=== PATIENT | male | born 1945 | race Caucasian/White ===

== ENCOUNTER 2020-11-28 05:39 | Inpatient (IN) ==
--- NOTE | 2020-11-25 14:17 | Anesthesiology Consultation ---
Date of Service November 25, 2020 Assessment & Plan (1) Encounter for pre-operative examination: - COVID screening: Per assessment on 11/25: Travel screen negative, no known COVID-19 positive contacts or current COVID-19 related symptoms. Patient had [place] 08/[place]/20 ([place]) > symptoms at time of fatigue, cough, n/v > resolved. Patient had Shantelle vaccine 10/17/20. Surgeon arranging preop COVID testing. Awaiting results. - Check BSG AM DOS Chart Review Chart Review: Acceptable Risk for Surgery and Patient NOT seen in Pre Admission Testing History Surgery Operation Date: 11/28/20 07:30 Proposed Procedures p Robotic Laparoscopic Assisted Partial Nephrectomy - Niko Flanagan, Height/Weight Height: 5 ft 7 in Weight: 86.183 kg Allergies Allergy/AdvReac Type Severity Reaction Status Date / Time No Known Allergies Allergy Unverified 11/25/20 13:17 Medications Home Medications Medication Instructions Recorded Confirmed Last Taken atorvastatin 40 mg PO HS 08/29/20 11/25/20 Unknown irbesartan 300 mg PO QAM 08/29/20 11/25/20 Unknown metformin 500 mg PO QAM 08/29/20 11/25/20 Unknown trazodone 50 mg PO HS 08/29/20 11/25/20 Unknown cholecalciferol (vitamin D3) 50 mcg PO BID 11/25/20 11/25/20 Unknown [Vitamin D3] ibuprofen-diphenhydramine cit 1 cap PO HS PRN 11/25/20 11/25/20 Unknown [Advil PM] melatonin 10 mg PO HS 11/25/20 11/25/20 Unknown multivitamin 1 tab PO QAM 11/25/20 11/25/20 Unknown Past Medical History Medical History Chronic back pain DM type 2 (diabetes mellitus, type 2) NIDDM History of COVID-19 Dx [place]/30/20 ([place]) > symptoms at time of fatigue, cough, n/v > resolved History of kidney stones HLD (hyperlipidemia) HTN (hypertension) Renal mass, right Past Family History Family History Mother Hypertension Other No family history of adverse response to anesthesia Past Surgical History Surgical History History of colonoscopy History of tooth extraction Social History Smoking Status: Never smoker Do You Dip or Chew Tobacco: No Hx Alcohol Use: No Hx Substance Use: No substance use type: does not use Lab Results Anesthesia Preop Results Results Anesthesia Widget: WBC 4.90 K/uL (4.8-10.8) 11/15/20 Hgb 13.1 g/dL (14.0-18.0) L 11/15/20 Hct 40.1 % (42-52) L 11/15/20 Plt 209 K/uL (130-400) 11/15/20 Na 142 mmol/L (136-145) 11/15/20 K 3.9 mmol/L (3.5-5.1) 11/15/20 Cl 109 mmol/L (98-107) H 11/15/20 CO2 28 mmol/L (21-32) 11/15/20 BUN 21 mg/dl (7-18) H 11/15/20 Creat 0.99 mg/dl (0.6-1.4) 11/15/20 Glucose Level 99 mg/dl (70-99) 11/15/20 Urine Color Yellow 11/15/20 Urine Appearance Clear 11/20/20 Urine pH 6.0 (4.5-7.5) 11/15/20 Urine Specific [place] 1.013 (1.000-1.030) 11/15/20 Urine Protein Negative (Negative) 11/15/20 Urine Glucose (UA) Negative (Negative) 11/15/20 Urine Ketones Negative (Negative) 11/15/20 Urine Blood Negative (Negative) 11/15/20 Urine Nitrite Negative (Negative) 11/15/20 Urine Bilirubin Negative (Negative) 11/15/20 Urine Urobilinogen Negative (Negative) 11/15/20 Urine Leukocyte Esterase Negative (Negative) 11/15/20 Testing Electrocardiogram Date: 08/30/20 SR with first degree AVB at 71bpm. Otherwise normal ECG. Chest X-Ray Date: 10/25/20 Interstitial thickening and a few bilateral airspace opacities, improved since exam of August 29, 2020. The findings favor a resolving infectious process. Follow-up chest radiographs in 3 months to ensure complete resolution is recommended. Cardiomegaly without evidence for pulmonary edema.
[2020-11-28] MEDS ORDERED: LR 15ML/HR IV SCH (06:00)
[2020-11-28] MEDS ORDERED: ceFAZolin 2000MG 2,000 MG/15 ML SYR IV SCH (06:00)
[2020-11-28] MEDS ORDERED: ALBUMIN HUMAN 5% 12.5 GM/250 ML VIAL IV ONE (06:32)
[2020-11-28] MEDS ORDERED: SUGAMMADEX SODIUM 200 MG/2 ML VIAL IV ONE (06:32)
[2020-11-28] MEDS ORDERED: ACETAMINOPHEN 1000 MG/100 ML IV IV ONE (06:32)
[2020-11-28] MEDS ORDERED: fentaNYL citrate 100 MCG/2 ML VIAL ONE (06:44)
[2020-11-28] MEDS ORDERED: MIDAZOLAM HCL 1 MG/ML 2ML VIAL ONE (06:44)
--- NOTE | 2020-11-28 07:06 | History & Physical Bridge Note ---
Date of Service November 28, 2020 History & Physical Bridge Note I have examined the patient, reviewed the History & Physical and in the interval since the performance of the History & Physical I have noted the following changes of clinical significance: no changes noted
[2020-11-28] MEDS ORDERED: BUPIVACAINE 0.5 % 5 MG/1 ML MPF 30ML VIAL ONE (07:24)
[2020-11-28] MEDS ORDERED: ATROPINE SULFATE 0.1 MG/ML 10ML SYR IV PRN (08:03)
[2020-11-28] MEDS ORDERED: ePHEDrine sulfate 50 MG/ML AMP IV PRN (08:03)
[2020-11-28] MEDS ORDERED: HYDROmorphone INJ 1 MG/ML SYRINGE IV PRN (08:03)
[2020-11-28] MEDS ORDERED: ONDANSETRON INJ 2 MG/ML 2 ML VIAL IV PRN (08:03)
[2020-11-28] MEDS ORDERED: ROCURONIUM BROMIDE 10 MG/ML 5 ML VIAL IV ONE (08:47)
[2020-11-28] MEDS ORDERED: DEXAMETHASONE SOD INJ 4 MG/ML VIAL ONE (08:47)
[2020-11-28] MEDS ORDERED: LIDOCAINE 2% 2 ML VIAL/AMP(20MG/ML) INFIL ONE (08:47)
[2020-11-28] MEDS ORDERED: ePHEDrine sulfate 50 MG/ML SYR ONE (08:47)
[2020-11-28] MEDS ORDERED: ONDANSETRON INJ 2 MG/ML 2 ML VIAL ONE (08:47)
[2020-11-28] MEDS ORDERED: PROPOFOL IV EMULSION 10 MG/ML 20 ML VIAL IV ONE (08:47)
[2020-11-28] MEDS ORDERED: TISSEEL FIBRIN SEALANT 10ML TOP ONE (09:07)
[2020-11-28] MEDS ORDERED: SURGICEL ABSORB HEMOSTAT 2IN X 14IN TOP ONE (09:07)
[2020-11-28] MEDS ORDERED: FLOSEAL HEMOSTATIC MATRIX 10ML TOP ONE (09:07)
[2020-11-28] MEDS ORDERED: HYDROmorphone INJ 2 MG/ML SYR/VIAL ONE (09:48)
[2020-11-28] MEDS ORDERED: SODIUM CHLORIDE 0.9% INJ 10 ML VIAL ONE (09:49)
--- NOTE | 2020-11-28 10:45 | Operative Report ---
PG Post Operative Report Pre & Post Diagnosis Operation Date: 11/28/20 07:30 Pre-Op Diagnosis: Right Renal Mass Post-Op Diagnosis: Right Renal Mass I identified the patient and participated in the time-out.: Yes Procedure Operation Date: 11/28/20 07:30 Actual Procedures p Robotic Laparoscopic Assisted Right Partial Nephrectomy(Right) - Niko Flanagan DO Surgeon Niko Flanagan, II, DO Ssis Developer Liu and Jessica Estimated Blood Loss 20 Findings Consistent with Post-Op Diagnosis Anterior Upper pole renal mass. Arterial and Venous branches of renal vessels around the mass. Specimens Right renal mass Drains 18 Fr Rao Anesthesia Type General Complications none Disposition Disposition: Recovery Room Indications Patient with right renal mass suspicious for malignancy. Risks and benefits discussed at length. Description of Procedure The patient was brought to the operative suite and placed under general endotracheal intubation anesthesia in the supine position. The patient was transferred to lateral position with the right flank exposed. The patient was placed into a flex'ed position and then placed into mild reverse Trendelenberg. At this point, the patient prepped and draped in the usual sterile fashion and a timeout was completed. Preoperative weight based antibiotics had been given. DIANA's and SCD's were placed on the patient's lower extremities. A catheter was placed by nursing using sterile technique. With the time out completed the patient was flexed and the skin was marked. The midclavicular line site was anesthetized. A small incision was made into the skin and subcutaneous tissues. A Varess needle was selected and placed. The needle was easily moved and it was irrigated and aspirated without any issues or concerns for placement. Insufflation commenced. The Robotic port was then marked along the lateral edge of the rectus sheath. Local was injected. An incision was made. The 8 mm camera port was placed. The abdominal cavity was further insufflated. The laparoscopic camera was placed and the abdominal cavity inspected. No concerning features were noted. At this point, the skin was marked for remaining robot port placement and 3 x 8mm working ports were placed. The skin was anesthetized down to fascia and an approx 1cm incision was made to place the 3 x 8mm ports. A 12 mm assistant technician ports was also placed in similar fashion under direct visualization superior to the umbilicus. The robot was positioned and docked. The camera was placed and all trocars were positioned under direct visualization. Rosa Hatfield was integral in port placement, camera utilization, and docking procedure. She also assisted during the extensive lysis of adhesions. She remained in sterile attire and then proceeded to assist the remainder of the case. The colon was mobilized medially to expose the retroperitoneum and the area assessed. Adhesions were freed to allow mobilization. A small amount of further adhesions were noted from the colon and were freed. These were dissected with blunt technique. Cautery was used to assist dissection and control bleeding. The retroperitoneal fat was assessed. Starting distally the retroperitoneum was dissected and care was taken to dissect down near the IVC. The gonadal vein and ureter were identified. This was then followed superiorly. Dissection stayed toward the midline along the IVC and the ureter and gonadal vein were followed up towards the renal hilum. The dissection was followed to the renal pelvis. The Renal Vein was identified and exposed. Dissection was taken further superior. The Renal Artery and Vein were then cleaned and exposed. Clamp placement was assessed and good access was achieved. The perirenal fat anterior to the kidney was then dissected. The mass and surrounding tissues were exposed. The kidney was then further mobilized. The ultrasound probe was placed and the mass further examined. The edges were marked. Branches of the renal vein and artery wrapped around the medial edge of the mass. These were carefully dissected free and were able to be spared from dissection or ligation. The Vessels were assessed a final time. A bulldog clamp was placed on the artery and then on the vein. The kidney appropriately blanched. The previously marked margins were used to start the incision into the kidney. The mass was completely excised without evidence of penetrating into the capsule of the mass. The mass was quite deep and dissection was taken down towards the collecting system. The base of resection bed was assessed and small vessels were cauterized. The collecting system did appear to be opened in a small area. A 3-0 barbed suture was selected and the nephrotomy closed. Care was taken to close the collecting system opening. 3-0 Vicryl sutures were then used to close the edges of the elliptical opening. Two Vicryl sutures were used to close and bolster the edges. At this point, the bulldog clamps were removed. Warm ischemia time, in total, was 11 minutes and 55 Seconds. The kidney was full assessed after removal of clamps. No bleeding or other major areas of concern. Weck and Hemolock clips were used to bolster and tightened to approximate the edges. Surgicel hemostatic agent sheets were placed over the vessels and on the incised edge. Hemostatic agents Tisseel and Floseal were also placed. Hemostatic agent was also placed on the vessels. No major bleeding or other issues. Gerota's tissues were replaced utilizing clips to cover the area. The excised mass was placed in an endocatch bag for removal. The entire dissection space was inspected one final time. No bleeding or injuries or areas of concern were noted. No tumor or other concerning features were noted. At this point, the robot was undocked and moved away from the patient. The port sites were all assessed laparoscopically. The endoscopic bag was moved into the umbilical port. The assistant technician port was opened further exposing fascia which was then opened in order to removed the mass within the bag. A PDS suture was used to close fascia. The skin at each site was closed with a running monocryl suture. The area was cleaned and bandages placed on each incision. The patient was cleaned and bandaged. The patient was moved back into the supine position The patient was cleaned, aroused from anesthesia, and transferred to the pacu in stable condition having tolerated the procedure well with no complications. I was present and participated in all aspects of the procedure. ENRIQUE Torres was critical in the portions as mentioned above. Plan to observe overnight with plans for pathology review in 2-3 weeks. I attest to the content of the Intraoperative Record and any orders documented therein. Any exceptions are noted below.
[2020-11-28] MEDS: fentaNYL citrate 100 MCG/2 ML VIAL IV PRN ×4 (11:07→11:22)
--- NOTE | 2020-11-28 11:32 | Anesthesiology Progress Note ---
Date of Service November 28, 2020 Anesthesia Post Procedure Vital Signs Vital Signs: Temp Pulse Pulse Resp BP BP Pulse Ox 11/28/20 11:30 74 16 134/75 95 11/28/20 11:20 78 16 138/76 94 11/28/20 11:10 74 16 123/70 98 11/28/20 11:00 71 16 132/73 100 11/28/20 10:53 36.2 C L 73 16 140/72 98 11/28/20 06:19 37.2 C 61 20 166/87 H 97 Transfer of Care Handoff Completed per policy Notes Mental Status: alert / awake / arousable and participated in evaluation Patient Amnestic to Procedure: Yes Nausea / Vomiting: adequately controlled Pain: adequately controlled Airway Patency, RR, SpO2: stable & adequate BP & HR: stable & adequate Hydration State: stable & adequate Anesthetic Complications: no major complications apparent and Pt Satisfied with anesthetic care
[2020-11-28 11:38] LABS: Basophils # (auto) 0.01 K/uL (0-0.2); Basophils % (auto) 0.1 %; Eosinophils # (auto) 0.03 K/uL (0-0.5); Eosinophils % (auto) 0.4 %; Hematocrit (blood only) 39.5 % (42-52); Immature Granulocytes # (auto) 0.01 K/uL (0.00-0.02); Immature Granulocytes % (auto) 0.1 %; Lymphocytes # (auto) 0.65 K/uL (1.2-3.4); Lymphocytes % (auto) 8.5 %; Mean Corpuscular Hemoglobin 31.6 pg (25-34); Mean Corpuscular Volume 96.1 fL (80-100); Mean Platelet Volume 9.6 fL (7.4-10.4); Monocytes # (auto) 0.15 K/uL (0.11-0.59); Neutrophils # (auto) 6.84 K/uL (1.4-6.5); Neutrophils % (auto) 88.9 %; Platelet Count 186 K/uL (130-400); RDW Coefficient of Variation 13.7 % (11.5-14.5); RDW Standard Deviation 48.5 fL (36.4-46.3); Red Blood Count 4.11 M/uL (4.7-6.1); White Blood Count 7.69 K/uL (4.8-10.8)
[2020-11-28 11:45] LABS: Mean Corpuscular Hgb Conc 32.9 g/dL (32-36)
[2020-11-28 12:15] LABS: BUN Creatinine Ratio 25.6 (10-20); Calcium 5.5 mg/dl (8.5-10.1); Creatinine Clr Calc Pharmacy 126.8 ml/min; Est GFR (African American) 118.3 ml/min; Est GFR (Non-African American) 102.1 ml/min; Potassium 2.2 mmol/L (3.5-5.1)
[2020-11-28] MEDS ORDERED: MoRPHine SULFATE 4 MG/ML 1 ML CARP\\VIAL IV PRN (12:18)
[2020-11-28] MEDS ORDERED: MoRPHine SULFATE 2 MG/ML CARP IV PRN (12:18)
[2020-11-28] MEDS ORDERED: oxyCODONE HCL IR 5 MG TAB (IMMEDIATE RELEASE) PO PRN (12:18)
[2020-11-28] MEDS ORDERED: LACTATED RINGER'S 1,000 ML IV SCH ×2 (12:18→16:00)
[2020-11-28] MEDS ORDERED: ACETAMINOPHEN 325 MG TAB PO PRN (12:18)
[2020-11-28] MEDS ORDERED: PHARMACY GLYCEMIC MGMT CONSULT PRN (12:24)
[2020-11-28] MEDS ORDERED: GLUCOSE 10 TABS/TUBE PO PRN (13:00)
[2020-11-28] MEDS ORDERED: CARBOHYDRATES FOR HYPOGLYCEMIA PO PRN (13:00)
[2020-11-28] MEDS ORDERED: DEXTROSE 50% 50 ML SYRINGE IV PRN (13:00)
[2020-11-28] MEDS ORDERED: GLUCAGON FOR INJ 1 MG VIAL IM PRN (13:00)
[2020-11-28] MEDS ORDERED: GLUCOSE 40% GEL 15 GM TUBE PO PRN (13:00)
[2020-11-28] MEDS ORDERED: D5W AND 1/2NSS + 20MEQ KCL 20 MEQ/1,000 ML BAG IV SCH (13:15)
--- NOTE | 2020-11-28 13:29 | Pharmacy Report ---
Pharmacy Glycemic Short Note 2 - Date of Service November 28, 2020 - Glycemic Short BSG Results (Last 24 hours): 11/28/20 11/28/20 11/28/20 06:08 10:56 11:19 Glucose 125 H POC Glucose 105 H 179 H 11/28/20 12:10 Glucose POC Glucose 173 H OUTPATIENT ANTIDIABETIC REGIMEN: * Metformin 500mg PO QAM * A1c = ? (ordered for 11/29/20) ASSESSMENT: * 75yo T2DM male with unknown degree of outpatient control. No A1c in records. Ordered per protocol for 11/29 AM but will interpret cautiously as patient has renal mass s/p right partial nephrectomy which could have altered RBC turnover rate * Pt is maintained on oral antidiabetic agents as an outpatient * Oral agents are not recommended for inpatient use d/t drug interactions, changing PO intake, and difficulty titrating for acute hyper/hypoglycemia. ADA recommends re-initiating outpatient oral agents 1-2 days prior to discharge if/when appropriate if they were held on admission. * Will hold oral agent for admission and utilize SQ basal bolus insulin regimen which is the recommended regimen for inpatient glycemic control. * Will initiate weight based insulin dosing for insulin alanna patient and titrate based on BSG trends. * Pt did receive IV dexamethasone 4mg intraoperatively which will cause hyperglycemia. Usually NPH is given to cover this hyperglycemia but will hold off since LOW K+ and only ordered a clear liquid diet PLAN FOR INPATIENT GLYCEMIC CONTROL: * Hold outpatient oral diabetes medications * Basal insulin * HOLD for now- will initiate if BSG >180 once K+ > 3.3 * Bolus insulin * NovoLog per scale ACHS or Q6hrs while NPO. Additional Q4hr overnight checks since no basal ordered * Goal Range: Low 110 mg/dL - High 140 mg/dL * Correction Factor: 25 mg/dL/unit * Nutritional / Prandial insulin per carb ratio of 1 unit per 9 grams CHO consumed PLAN FOR DISCHARGE: * TBD
[2020-11-28] MEDS: INSULIN ASPART 100 UNITS/ML 3 ML PEN SC SCH ×3 (14:04→21:58)
[2020-11-28] MEDS ORDERED: CALCIUM GLUCONATE 10% 1,000 MG in SODIUM CHLORIDE 0.9% 50 ML IV ONE (14:30)
--- NOTE | 2020-11-28 14:57 | Hospitalist Consultation ---
Date of Consultation November 28, 2020 Assessment & Plan (1) Renal mass: s/p Robotic Laparoscopic Assisted Right Partial Nephrectomy POD #0 Pain and VTE management per primary urology team (2) Electrolyte abnormality: Suspect erroneous draw. Repeat CMP with uric acid, Mg and PO. Calcium gluconate 1g IV now. EKG with prolonged GA but similar to pre-op, otherwise unremarkable. (3) HLD (hyperlipidemia): Continue atorvastatin 40mg PO HS (4) HTN (hypertension): Continue irbesartan 300mg PO QAM (5) DM type 2 (diabetes mellitus, type 2): Pharmacy consulted for glycemic control History of Present Illness Reason for Consultation: Abnormal electrolytes Attending Physician: Niko Flanagan, II, DO History of Present Illness Franki Padilla is a 75 year old male who presents for elective Robotic Laparoscopic Assisted Right Partial Nephrectomy performed by Dr Flanagan earlier today for a renal cell mass. He reports doing well post operatively with only a mild pain across his upper abdomen around the site of his surgical incisions. He had routine post operative labs which were concerning for multiple electrolyte abnormalities including hypernatremia, hypokalemia, hyperchloremia and hypocalcemia. He denies any chest pain, palpitations. No history of abnormal electrolytes. Allergies Allergy/AdvReac Type Severity Reaction Status Date / Time No Known Allergies Allergy Unverified 11/28/20 06:15 Home Medications Medication Instructions Recorded Confirmed Type atorvastatin 40 mg PO HS 08/29/20 11/28/20 History irbesartan [Avapro] 300 mg PO QAM 08/29/20 11/28/20 History metformin 500 mg PO QAM 08/29/20 11/28/20 History trazodone 50 mg PO HS 08/29/20 11/28/20 History cholecalciferol (vitamin D3) 50 mcg PO BID 11/25/20 11/28/20 History [Vitamin D3] ibuprofen-diphenhydramine cit 1 cap PO HS PRN 11/25/20 11/28/20 History [Advil PM] melatonin 10 mg PO HS 11/25/20 11/28/20 History multivitamin 1 tab PO QAM 11/25/20 11/28/20 History Patient History Medical History Chronic back pain DM type 2 (diabetes mellitus, type 2) NIDDM History of COVID-19 Dx 3/26/21 ([place]) > symptoms at time of fatigue, cough, n/v > resolved History of kidney stones HLD (hyperlipidemia) HTN (hypertension) Renal mass, right Surgical History History of colonoscopy History of tooth extraction Family History Mother Hypertension Other No family history of adverse response to anesthesia Social History Smoking Status: Never smoker Second Hand Exposure: No; Do You Dip or Chew Tobacco: No; Hx Alcohol Use: No Hx Substance Use: No Preferred Language: French Front Desk Officer Required: No Beliefs That Will Affect Care: None Current Living Situation: Spouse Feels Safe at Home: Yes Safety Concerns: Feels Safe At This Time Assistive Devices: Denture - Upper Review of Systems Review of Systems: All systems reviewed & are unremarkable except as noted in HPI & below Physical Exam Constitutional: WD/WN, vitals as above Eyes: + anicteric sclerae; normal pupil size ENMT: external ear and nose normal, oropharynx normal Respiratory: normal respiratory effort, lungs clear to auscultation Cardiovascular: RRR, no murmur, no edema Gastrointestinal (Abdomen): Inspection/Auscultation: abdomen normal to inspection (surical incision scars present, C/D/I) and + hypoactive bowel sounds Percussion/Palpation: + abdomen tender (mild over upper abdomen) and abdomen soft; no guarding and abdomen not rigid Musculoskeletal: no cyanosis or clubbing, extremities motor strength 5/5 Skin: no rashes, warm and dry Neurologic: moves all extremities and awake; no focal motor deficits (no lateralizing deficit) and not confused Psychiatric: A+Ox3, euthymic affect Results & Data Results & Data ([facility]) Vital Signs (Past 12 Hours) Vital Signs Temp Pulse Pulse Resp BP BP Pulse Ox 11/28/20 13:08 36.2 C L 77 16 144/75 H 97 11/28/20 12:37 36.6 C 75 16 139/64 98 11/28/20 12:30 36.8 C 78 20 139/68 98 11/28/20 12:00 36.7 C 72 20 142/74 H 98 11/28/20 11:45 36.6 C 81 18 134/68 98 11/28/20 11:40 36.4 C L 75 16 144/77 H 98 11/28/20 11:30 74 16 134/75 95 11/28/20 11:20 78 16 138/76 94 11/28/20 11:10 74 16 123/70 98 11/28/20 11:00 71 16 132/73 100 11/28/20 10:53 36.2 C L 73 16 140/72 98 11/28/20 06:19 37.2 C 61 20 166/87 H 97 ECG Indication: other (electrolyte abnormalities) Rate (beats per minute): 78 Rhythm: normal sinus Findings: + 1st degree AV block (260ms); no acute ischemic change Comparison ECG Date: from (August 30, 2020) Change: no significant change PG Care Time/CCT Total # of Minutes Spent Total Time Spent with Patient: Total time spent is greater than 50% in coordination of care (as documented) at patient's floor/unit and/or counseling patient: Coding Level of Care Code 50844 Inpt Consult Level 4 Diagnoses Renal mass N28.89 Electrolyte abnormality E87.8 HLD (hyperlipidemia) E78.5 HTN (hypertension) I10 DM type 2 (diabetes mellitus, type 2) E11.9
[2020-11-28 15:40] LABS: Albumin Level 3.8 gm/dl (3.4-5.0); BUN Creatinine Ratio 18.4 (10-20); Calcium 8.6 mg/dl (8.5-10.1); Creatinine Clr Calc Pharmacy 62.2 ml/min; Est GFR (African American) 76.3 ml/min; Est GFR (Non-African American) 65.9 ml/min; Magnesium 2.2 mg/dl (1.8-2.4); Potassium 3.8 mmol/L (3.5-5.1)
[2020-11-28] MEDS: POTASSIUM CHLORIDE / WTR 10 MEQ/100 ML PLCT IV SCH ×2 (15:47→23:10)
[2020-11-28 15:50] LABS: Bilirubin Direct 0.3 mg/dl (0-0.2); Bilirubin,Total 0.8 mg/dl (0.2-1); Phosphorus 3.8 mg/dl (2.5-4.9); Total Protein 7.2 gm/dl (6.4-8.2)
[2020-11-28] MEDS: ceFAZolin 2000MG 2,000 MG/15 ML SYR IV SCH (16:53)
[2020-11-28] MEDS ORDERED: ATORVASTATIN 40 MG TAB PO SCH (21:00)
[2020-11-28] MEDS ORDERED: MELATONIN 3 MG TAB PO SCH (21:00)
[2020-11-28] MEDS ORDERED: traZODone HCL 50 MG TAB PO SCH (21:00)
[2020-11-28] MEDS: CHOLECALCIFEROL 1,000 UNITS 25 MCG TAB PO SCH (21:51)
[2020-11-28] MEDS: HEPARIN SOD 5,000 UNIT/0.5 ML VIAL SQ SCH (21:51)
[2020-11-29] MEDS: ceFAZolin 2000MG 2,000 MG/15 ML SYR IV SCH (00:01)
[2020-11-29] MEDS: INSULIN ASPART 100 UNITS/ML 3 ML PEN SC SCH ×4 (00:30→12:38)
[2020-11-29] MEDS: oxyCODONE HCL IR 5 MG TAB (IMMEDIATE RELEASE) PO PRN ×2 (04:10→13:14)
--- NOTE | 2020-11-29 06:23 | Electrocardiogram Report ---
Test Reason : Blood Pressure : / mmHG Vent. Rate : 078 BPM Atrial Rate : 078 BPM P-R Int : 260 ms QRS Dur : 096 ms QT Int : 434 ms P-R-T Axes : 037 -02 012 degrees QTc Int : 494 ms Sinus rhythm with 1st degree A-V block Possible Left atrial enlargement Prolonged QT Abnormal ECG When compared with ECG of 30-AUG-2020 18:38, No significant change was found Confirmed by Alvarez Mcleod ([id number]) on 11/29/2020 6:22:43 AM Referred By: Niko Flanagan Confirmed By:Alvarez Mcleod
[2020-11-29 07:30] LABS: Hematocrit (blood only) 38.8 % (42-52); Hemoglobin 12.8 g/dL (14.0-18.0); Immature Granulocytes # (auto) 0.01 K/uL (0.00-0.02); Immature Granulocytes % (auto) 0.1 %; Lymphocytes # (auto) 1.03 K/uL (1.2-3.4); Lymphocytes % (auto) 8.8 %; Mean Corpuscular Hemoglobin 31.7 pg (25-34); Mean Platelet Volume 9.9 fL (7.4-10.4); Monocytes # (auto) 1.17 K/uL (0.11-0.59); Neutrophils # (auto) 9.48 K/uL (1.4-6.5); Neutrophils % (auto) 81.1 %; Platelet Count 198 K/uL (130-400); RDW Coefficient of Variation 13.7 % (11.5-14.5); RDW Standard Deviation 48.4 fL (36.4-46.3); Red Blood Count 4.04 M/uL (4.7-6.1); White Blood Count 11.69 K/uL (4.8-10.8)
[2020-11-29 07:58] LABS: BUN Creatinine Ratio 20.9 (10-20); Calcium 8.9 mg/dl (8.5-10.1); Creatinine Clr Calc Pharmacy 65.2 ml/min; Est GFR (African American) 80.8 ml/min; Est GFR (Non-African American) 69.7 ml/min; Potassium 3.9 mmol/L (3.5-5.1)
--- NOTE | 2020-11-29 08:17 | Urology Progress Note ---
Date of Service November 29, 2020 Assessment & Plan (1) Renal mass: 75 year old male POD#1 s/p right partial nephrectomy with Dr. Flanagan. - Doing well, progressing as expected - Afebrile, lab work reviewed - as expected post-op - K and Ca within normal limits upon repeat yesterday and today - Tolerating clear liquid diet, advance to full liquids for lunch - Ambulating without difficulty - Surgical incisions appropriate - Rao out this AM, monitor for void - Anticipate home later today if he continues to progress as expected - Expected clinical course reviewed, all questions answered - Will arrange appropriate post-op appointment with our service Admission and Anticipated Discharge Date Admission Date: November 28, 2020 Subjective 75 year old male POD#1 s/p robotic right partial nephrectomy with Dr. Flanagan. Pt seen and examined at bedside in AM No acute issues overnight Notes some upper abdominal/incisional discomfort, right side Tolerating diet, no nausea or vomiting. +Flatus Rao intact, patent and draining clear yellow urine No fever or chills He ambulated hallway without difficulty He feels ready to go home today Labs directly after surgery showed some electrolyte abnormalities - K 2.2, Ca 5.5. Hospital medicine was consulted for electrolyte abnormalities. EKG was stable from preop. Labs were repeated and were within normal limits, post op labs suspected to be erroneous. Patient did not require repletion. Chart review: Afebrile, creatinine 1.03, WBC 11.69, Hgb 12.8, K 3.8, Ca 8.6 No additional concerns today. Review of Systems Constitutional: as per Subjective / HPI Gastrointestinal: as per Subjective / HPI Genitourinary: + as per Subjective / HPI Physical Exam Constitutional: well developed and well nourished; no acute distress Respiratory: normal respiratory effort and able to speak in complete sentences; no respiratory distress and no labored breathing Cardiovascular: Extremities: no pedal edema Gastrointestinal (Abdomen): Abdomen soft, nondistended, mildly tender to palpation on right side and incisions, no rebound or guarding Musculoskeletal: Head/Neck/Chest: normocephalic and head atraumatic Extremities: extremities normal to inspection Skin: Surgical incisions healthy, well approximated with dermabond intact and open to air. No erythema, warmth or drainage. Neurologic: moves all extremities and awake Psychiatric: Orientation: alert and oriented x 3 Genitourinary: Rao intact, patent and draining clear yellow urine Results & Data ([facility]) Vital Signs (Past 12 Hours) Vital Signs Temp Pulse Resp BP Pulse Ox 11/29/20 03:35 36.7 C 68 15 123/66 95 11/28/20 22:20 36.8 C 71 15 121/68 93 11/28/20 21:56 94
[2020-11-29 08:43] LABS: Estimated Average Glucose 114 mg/dl; Hemoglobin A1C 5.6 % (4.5-5.6)
[2020-11-29] MEDS: CHOLECALCIFEROL 1,000 UNITS 25 MCG TAB PO SCH (08:44)
[2020-11-29] MEDS: HEPARIN SOD 5,000 UNIT/0.5 ML VIAL SQ SCH (08:45)
[2020-11-29] MEDS ORDERED: IRBESARTAN 150 MG TAB PO SCH (09:00)
[2020-11-29] MEDS ORDERED: MULTIVITAMIN TAB PO SCH (09:00)
--- NOTE | 2020-11-29 09:56 | Pharmacy Report ---
Pharmacy Glycemic Short Note 2 - Date of Service November 29, 2020 - Glycemic Short BSG Results (Last 24 hours): 11/28/20 11/28/20 11/28/20 10:56 11:19 11:19 Glucose 125 H Cancelled POC Glucose 179 H 11/28/20 11/28/20 11/28/20 12:10 15:02 16:53 Glucose 175 H POC Glucose 173 H 164 H 11/28/20 11/29/20 11/29/20 21:16 00:01 03:58 Glucose POC Glucose 137 H 132 H 144 H 11/29/20 11/29/20 07:00 08:23 Glucose 110 H POC Glucose 110 H OUTPATIENT ANTIDIABETIC REGIMEN: * Metformin 500mg PO QAM * A1c = 5.6% (11/29/20) ASSESSMENT: 11/29 * Doan required only 6 units of Novolog yesterday and BSGs were acceptable [phone] mg/dL * Fasting BSG was 110 mg/dL which is at goal * Continue with just bolus insulin monotherapy for BSG control 11/28 * 75yo T2DM male with unknown degree of outpatient control. No A1c in records. Ordered per protocol for 11/29 AM but will interpret cautiously as patient has renal mass s/p right partial nephrectomy which could have altered RBC turnover rate * Pt is maintained on oral antidiabetic agents as an outpatient * Oral agents are not recommended for inpatient use d/t drug interactions, changing PO intake, and difficulty titrating for acute hyper/hypoglycemia. ADA recommends re-initiating outpatient oral agents 1-2 days prior to discharge if/when appropriate if they were held on admission. * Will hold oral agent for admission and utilize SQ basal bolus insulin regimen which is the recommended regimen for inpatient glycemic control. * Will initiate weight based insulin dosing for insulin alanna patient and titrate based on BSG trends. * Pt did receive IV dexamethasone 4mg intraoperatively which will cause hyperglycemia. Usually NPH is given to cover this hyperglycemia but will hold off since LOW K+ and only ordered a clear liquid diet PLAN FOR INPATIENT GLYCEMIC CONTROL: * Hold outpatient oral diabetes medications * Basal insulin * HOLD for now- will initiate if BSG >180 once K+ > 3.3 * Bolus insulin * NovoLog per scale ACHS or Q6hrs while NPO. Additional Q4hr overnight checks since no basal ordered * Goal Range: Low 110 mg/dL - High 140 mg/dL * Correction Factor: 25 mg/dL/unit * Nutritional / Prandial insulin per carb ratio of 1 unit per 9 grams CHO consumed PLAN FOR DISCHARGE: * HbA1c is at goal for this patient. Continue with metformin monotherapy on an outpatient basis as long as no hypoglycemia is noted from patient.
--- NOTE | 2020-11-29 12:43 | Discharge Summary ---
Date of Service November 29, 2020 Admission HPI Per Admitting Provider 75 year old male patient with right renal mass admitted for Robotic Laparoscopic Assisted Right Partial Nephrectomy Admission Exam Per Admitting Provider General: Alert in no acute distress. HEENT: Inspection normal Psychologic: Normal affect. Respiratory: Nonlabored. No use of accessory muscles. Skin: [place] and Dry. No rashes or visible lesions. Principal Diagnosis Right renal mass Discharge Exam Constitutional well developed and well nourished; no acute distress Respiratory normal respiratory effort and able to speak in complete sentences; no respiratory distress and no labored breathing Cardiovascular Extremities: no pedal edema Musculoskeletal Head/Neck/Chest: normocephalic and head atraumatic Extremities: extremities normal to inspection Skin Surgical incisions healthy, well approximated, dermabond intact. No erythema, warmth or drainage. Neurologic moves all extremities and awake Psychiatric Orientation: alert and oriented x 3 Genitourinary Rao intact, patent and draining clear yellow urine Discharge Data Allergies Allergy/AdvReac Type Severity Reaction Status Date / Time No Known Allergies Allergy Unverified 11/28/20 06:15 Consultations 11/28/20 13:08 Consult Hospitalist Routine Procedures Performed Operation Date: 11/28/20 07:30 Actual Procedures p Robotic Laparoscopic Assisted Right Partial Nephrectomy(Right) - Niko Flanagan, DO Hospital Course (1) Renal mass: 75 year old male POD#1 s/p right partial nephrectomy with Dr. Flanagan. - Doing well, progressing as expected - Afebrile, lab work reviewed - as expected post-op - Immediate post-op labs showed electrolyte abnormalities - hospital medicine was consulted - Repeat labs were within normal limits, so lab error was suspected - K and Ca within normal limits upon repeat yesterday and today - Tolerating clear liquid diet, advance to full liquids for lunch - Ambulating without difficulty - Surgical incisions appropriate - Rao out this AM, monitor for void - Anticipate home later today if he continues to progress as expected - Expected clinical course reviewed, all questions answered - Will arrange appropriate post-op appointment with our service - Patient voided appropriately after Rao catheter removed - Patient discharged to home in stable condition on POD #1 Total Time Total Time Spent Total Time Spent (In Minutes): 30 Total Time Includes: Examination of the Patient, Discharge Planning and Medication Reconciliation Discharge Plan Discharge Items Patient Disposition: Home - Self-Care Reason For Visit: Renal Mass Discharge Diagnosis: Renal Mass Activity: Per Instructions section Lifting: No more than 25 pounds Bathing Comment: Okay to shower in 1 day, no tub bath or soaking Sexual Activity: Wait until after follow-up appointment Exercise/Sports: Wait until after follow-up appointment Driving/Machine Use: No driving while taking prescription pain medication Non-emergency contact: Surgeon and Urologist Call non-emergency contact if: you have any medication questions, your pain is not controlled, your pain is worsening, you have a fever, your temperature is above 101, your wound has increased redness and your wound pain has increased Follow-up/Referrals: Niko Flanagan, [Physician] - 12/13/20 9:00 am (Phone call appointment, call will be between 9 am and 2 pm) Yariel Wren MD [Primary Care Provider] - Diet: Carb Consistent or DM2 Addtl Attending Provider Instructions: Please take all medications as prescribed and keep all follow-ups as scheduled. Please call our office at [phone] with any questions, concerns or need to reschedule appointments for any reason. We are happy to assist you. Recovering at home: We recommend having someone with you for the first few days after surgery to help care for you. It is okay to shower tomorrow. Please avoid swimming, bathing or using hot tub until incisions are well healed. Avoid driving until you are not requiring pain medication any further. Walk at least a few times a day. Increase your distance, as you feel able. Stairs in your home are okay. Please avoid strenuous or sexual activity until your follow-up. We recommend using stool softener (i.e. Colace) to prevent constipation and straining, especially the first two weeks post operatively. Call [facility] at [phone] if you experience: Chest pain or trouble breathing (call [phone] or go to the hospital). Fever of 101F or higher Symptoms of infection at incision site, including redness or swelling, warmth, or bad-smelling drainage If you have catheter, and you notice: o Bloody urine or drainage that is dark red or has large clots (Please remember a small amount of blood is normal) o No drainage from the catheter for more than 6 hours o The catheter comes out of your bladder Pain that is not controlled with medicines Addtl Report Manager Provider Instructions: You were noted to have some abnormal labs (including an elevated sodium, low potassium and low calcium level). It is suspected that theses were perhaps a lab error as the repeat labs reviewed levels within normal limits. Would recommend repeat labs next week (at discretion of your PCP) Pending Studies at Discharge: Yes Studies:: pathology Stand-Alone Forms: My [facility], Smoking Cessation Medications and DC Order Prescriptions: New docusate sodium [Colace] 100 mg capsule 100 mg PO BID Qty: 60 RF: 0 oxycodone-acetaminophen [Percocet] 5-325 mg tablet 1 tab PO TID PRN (Reason: pain) Qty: 14 RF: 0 Continued multivitamin Tablet 1 tab PO QAM RF: 0 Advil PM 200-38 mg Tablet 1 cap PO HS PRN (Reason: Sleep) RF: 0 melatonin 10 mg Tablet 10 mg PO HS RF: 0 cholecalciferol (vitamin D3) [Vitamin D3] 50 mcg (2,000 unit) Capsule 50 mcg PO BID RF: 0 atorvastatin 40 mg tablet 40 mg PO HS RF: 0 metformin 500 mg tablet 500 mg PO QAM RF: 0 trazodone 50 mg tablet 50 mg PO HS RF: 0 irbesartan [Avapro] 300 mg tablet 300 mg PO QAM RF: 0 Discharge Orders: Discharge Order (Routine); Ordered 11/29/20 Ordered By: Rosa Yates/Other Patient Handouts: How Your Kidneys Work Admission Data Admit Date/Time: 11/28/20 11:11 Attending Provider: Niko Flanagan Admit Provider: Niko Flanagan Primary Care Provider: Yariel Wren Other Providers: Nancy Llamas ; Yariel Morataya ; Emil Tomas ; Bhaskar Santos ; Luís Loyd ; Cisco Muro ; Kim Melendez ; Coco Dc ; Batsheva Escoto ; Tory Zhong ; Arie Lazaro ; Patricio Barrios ; Enrique Diamond ; Taye [place] ; Soto Alarcon ; Osmani Ochoa ; Yariel Sepulveda ; Carroll Carranza ; Anne Marie Burnham ; Bronson Ortega ; Batsheva Haas ; Bharath Shahid Coding Level of Care Code D/C Day Management <30 mins Diagnoses Renal mass N28.89
--- NOTE | 2020-11-29 17:15 | Hospitalist Progress Note ---
Date of Service November 29, 2020 Assessment & Plan (1) Renal mass: s/p Robotic Laparoscopic Assisted Right Partial Nephrectomy POD #1 Pain and VTE management per primary urology team (2) Electrolyte abnormality: * Suspect erroneous lab values. Labs have remained within normal limits. At this time, no need for any intervention. * Will sign off on this patient from a medical standpoint but do not hesitate to reconsult should a problem arise. Thank you for allowing us to participate in the care of this patient * Would advise patient have a repeat metabolic panel in 1 to 2 weeksat discretion of PCP (3) HLD (hyperlipidemia): Continue atorvastatin 40mg PO HS (4) HTN (hypertension): Continue irbesartan 300mg PO QAM (5) DM type 2 (diabetes mellitus, type 2): Resume Metformin as prior to hospitalization Admission and Anticipated Discharge Date Admission Date: November 28, 2020 Subjective Patient seen on daily rounds today. He is POD #1 s/p right partial nephrectomy (robotic assisted laparoscopic procedure). He had an uneventful perioperative course. Hospitalist group was consulted due to some preoperative abnormal lab data (potassium 2.2, calcium 5.5, magnesium 2.2). Patient was given 1 L of fluid with 20 mEq of potassium chloride along with calcium gluconate IV x1 dose while repeat lab data was drawn. Repeat lab data came back showing no evidence of electrolyte abnormality and it was deemed a likely lab error. Lab data today revealed remains stable. Patient voices no complaints or concerns. He is getting about independently. He is moving his bladder without any issues. His pain is adequately controlled. Denies fevers, chills, chest pain, shortness of breath, abdominal pain, nausea or vomiting. Nursing voices no complaints or concerns. Review of Systems Review of Systems: Denies fevers, chills, headache, nasal congestion, sore throat, cough, chest pain, shortness of breath, abdominal pain, nausea, vomiting, GI/ symptomatology. Constitutional: + fever and + chills Physical Exam Physical Exam: General: Sitting comfortably in his hospital bed. A&O X3 NAD. does not appear ill or toxic Cardiac: RRR without M/G/R Lungs: CTA without W/R/R Abdomen: Surgical incisions are dry, clean and intact. Normoactive X4 abdomen is nondistended and soft nontender in all quadrants Extremities: No peripheral clubbing cyanosis or edema Results & Data Results & Data ([facility]) Vital Signs (Past 12 Hours) Vital Signs Temp Pulse Pulse Resp BP BP Pulse Ox 11/29/20 13:30 36.9 C 78 89 18 123/66 119/74 93 11/29/20 11:18 36.9 C 89 18 119/74 93 Laboratory Results 11/29/20 07:00 11/29/20 07:00 Calcium level 8.9 PG Care Time/CCT Total # of Minutes Spent Total Time Spent with Patient: Total time spent is greater than 50% in coordination of care (as documented) at patient's floor/unit and/or counseling patient: [place] [address] Inpt Consult Level 1 Patient Type Established History Problem Focused Exam Problem Focused Medical Decision Making Straight Forward Diagnoses Renal mass N28.89 Electrolyte abnormality E87.8 HLD (hyperlipidemia) E78.5 HTN (hypertension) I10 DM type 2 (diabetes mellitus, type 2) E11.9
== END 2020-11-29 14:50 | disposition home or self-care (01) | DRG 661 ==
LOC: ASU 05:39 → 3W 11:11